=== PATIENT | female | born 1940 | race African-American/Black ===

== ENCOUNTER 2022-12-24 18:02 | Emergency (ER) | payer OTHER ==
[2022-12-24 18:08] VITALS: BP 102/57; PULSE 76; RESP 20; TEMP 98; BMI 34.0
[2022-12-24] MEDS ORDERED: ACETAMINOPHEN 500 MG TABLET (FP) PO ONE (19:27)
[2022-12-24] MEDS ORDERED: METHOCARBAMOL 750 MG TAB PO ONE (19:28)
[2022-12-24] MEDS ORDERED: LIDOCAINE 5% TOPICAL PATCH TP ONE (19:28)
[2022-12-24] MEDS ORDERED: LIDOCAINE 4% PATCH TP ONE (19:39)
[2022-12-24] MEDS ORDERED: METHOCARBAMOL 500 MG TABLET ONE (19:39)
[2022-12-24] MEDS ORDERED: ACETAMINOPHEN 325 MG TABLET (FP) ONE (19:39)
[2022-12-24] MEDS ORDERED: LIDOCAINE PATCH REMOVAL MC SCH (22:00)
== END 2022-12-24 22:57 | disposition home or self-care (01) ==
LOC: JER 18:02
DX: M54.6 Pain in thoracic spine (principal); R11.10 Vomiting, unspecified; S23.3XXA Sprain of ligaments of thoracic spine, initial encounter; X58.XXXA Exposure to other specified factors, initial encounter
CPT/HCPCS: 72070-TC-FY; 73010-TC-FY; 99284-25